=== PATIENT | female | born 1975 | race Caucasian/White ===

== ENCOUNTER 2016-05-17 18:55 | Emergency (ER) | payer BC, OTHER ==
[~2016-05-17] VITALS: Ht 170.2 cm; Wt 78.5 kg
[2016-05-17] MEDS ORDERED: MELA10CA2 PO (19:20)
[2016-05-17] MEDS ORDERED: LACTATED RINGERS 1,000 ML IV ONE ×2 (19:35→20:21)
[2016-05-17 19:42] LABS: BASOPHILS % (AUTO) 0 % (0-10); EOSINOPHILS # (AUTO) 0.2 10^3/uL (0.0-0.3); EOSINOPHILS % (AUTO) 2 % (0-10); LYMPHOCYTES # (AUTO) 1.4 X 10^3 (1.0-4.0); LYMPHOCYTES % (AUTO) 12 % (12-44); MEAN CORPUSCULAR HEMOGLOBIN 32 PG (25-34); MEAN CORPUSCULAR HGB CONC 34 G/DL (32-36); MEAN CORPUSCULAR VOLUME 92 FL (80-99); MONOCYTES # (AUTO) 1.1 X 10^3 (0.0-1.0); MONOCYTES % (AUTO) 9 % (0-12); NEUTROPHILS % (AUTO) 77 % (42-75); PLATELET COUNT 375 10^3/uL (130-400); RED BLOOD COUNT 4.63 10^6/uL (4.35-5.85); RED CELL DISTRIBUTION WIDTH 12.9 % (10.0-14.5); WHITE BLOOD COUNT 11.7 10^3/uL (4.3-11.0)
[2016-05-17] MEDS ORDERED: ONDANSETRON 4 MG/2 ML (SDV) Z0FRAN IVP ONE (19:45)
[2016-05-17 19:56] LABS: BILIRUBIN,URINE NEGATIVE (NEGATIVE); KETONES,URINE NEGATIVE (NEGATIVE); LEUKOCYTE ESTERASE ,URINE 2+ (NEGATIVE); NITRITE,URINE NEGATIVE (NEGATIVE); PH,URINE 5 (5-9); PROTEIN,URINE NEGATIVE (NEGATIVE); UROBILINOGEN,URINE NORMAL (NORMAL)
[2016-05-17 20:04] LABS: ALANINE AMINOTRANSFERASE 18 U/L (0-55); ALBUMIN 4.2 G/DL (3.2-4.5); AMYLASE 55 U/L (25-125); ANION GAP 8 MMOL/L (5-14); ASPARTATE AMINO TRANSFERASE 18 U/L (5-34); BILIRUBIN,TOTAL 0.6 MG/DL (0.1-1.0); BLOOD UREA NITROGEN 10 MG/DL (7-18); BUN/CREATININE RATIO 12; CALCIUM 8.9 MG/DL (8.5-10.1); CARBON DIOXIDE 21 MMOL/L (21-32); CHLORIDE 108 MMOL/L (98-107); CREATININE SERUM 0.86 MG/DL (0.60-1.30); GFR ESTIMATED > 60; GLUCOSE 103 MG/DL (70-105); LIPASE 27 U/L (8-78); POTASSIUM 3.6 MMOL/L (3.6-5.0); SODIUM 137 MMOL/L (135-145)
[2016-05-17] MEDS ORDERED: LEVOFLOXACIN 500 MG TAB (LEVAQUIN) PO STA (20:21)
[2016-05-17] MEDS ORDERED: KETOROLAC 30 MG/ML VIAL IVP ONE (20:30)
[2016-05-17] MEDS ORDERED: LEVO500T2 PO (20:31)
[2016-05-17] MEDS ORDERED: HYOS0.1283 SL (20:31)
[2016-05-17] MEDS ORDERED: ONDA4TAB8 PO (20:31)
--- NOTE | 2016-05-17 20:32 | ED GI ---
General Chief Complaint: Abdominal/GI Problems Stated Complaint: FEVER,NAUSEA Nursing Triage Note: pt reports vomiting and diahrrea since 0500 today. Sepsis Screen: No Definite Risk Source of Information: Patient History of Present Illness Time Seen By Provider: 19:30 Initial Comments C/O NAUSEA/VOMITING/DIARRHEA AND LOWER ABDOMINAL PAIN SINCE 0500 THIS AM VOMITED X 10-15 TODAY, LAST EPISODE AT 1430. C/O "SEVERE" DIARRHEA--20 TO 30 EPISODES. NO BLACK/BLOODY/TARRY STOOLS. LAST EPISODE 30 MINUTES PRIOR TO ARRIVAL. HAS MILD LOWER ABDOMINAL CRAMPING NO FEVER DECREASED URINE OUTPUT, BUT LAST VOID WAS 30 MINUTES PRIOR TO ARRIVAL NO SICK CONTACTS OR SUSPICIOUS FOODS. PCP: NONE Allergies and Home Medications Allergies Coded Allergies: No Known Drug Allergies (Unverified , 05/17/16) Home Medications Hyoscyamine Sulfate 0.125 Mg Tab.subl #10 1-2 TAB SL Q4H Prescribed by: SINDY NAVAS on 05/17/162030 Levofloxacin 500 Mg Tablet #10 500 MG PO DAILY Prescribed by: SINDY NAVAS on 05/17/162030 Melatonin 10 Mg Capsule 10 MG PO HS (Reported) Ondansetron 4 Mg Tab.rapdis #10 4 MG PO Q4H Prescribed by: SINDY NAVAS on 05/17/162030 Review of Systems Constitutional: no symptoms reported Respiratory: No Symptoms Reported Cardiovascular: No Symptoms Reported Gastrointestinal: See HPI Genitourinary: See HPI Musculoskeletal: no symptoms reported Skin: no symptoms reported Psychiatric/Neurological: No Symptoms Reported Endocrine: No Symptoms Reported Hematologic/Lymphatic: No Symptoms Reported Past [facility] Hx Patient Social History Alcohol Use: Denies Use Recreational Drug Use: No Smoking Status: Current Everyday Smoker Type Used: Cigarettes Recent Foreign Travel: No Contact w/Someone Who Travel: No Recent Infectious Disease Expo: No Recent Hopitalizations: No Physical Abuse Screen: No Sexual Abuse: No Seasonal Allergies Seasonal Allergies: No Surgeries HX Surgeries: Yes (SPLENECTOMY; OVARIAN CYST REMOVAL) Surgeries: Gallbladder, Tonsillectomy Respiratory Hx Respiratory Disorders: No Cardiovascular Hx Cardiac Disorders: No Neurological Hx Neurological Disorders: No Reproductive System : No Hx Reproductive Disorders: Yes Female Reproductive Disorders: Ovarian Cyst ACCOUNT RECEIVABLE ASSOCIATE History: IUD Genitourinary Hx Genitourinary Disorders: Yes (acute renal failure ?) Gastrointestinal Hx Gastrointestinal Disorders: Yes Gastrointestinal Disorders: Colitis, Irritable Bowel Musculoskeletal Hx Musculoskeletal Disorders: No Endocrine Hx Endocrine Disorders: No HEENT HX ENT Disorders: No Cancer Hx Cancer: No Psychosocial Hx Psychiatric Problems: No Integumentary HX Skin/Integumentary Disorder: No Blood Transfusions Hx Blood Disorders: No Physical Exam Vital Signs VS - Last 72 Hours, by Label 05/17/16 05/17/16 19:12 21:00 Temp 98.9 Pulse 71 64 Resp 18 18 B/P 113/76 Pulse Ox 100 98 Capillary Refill : Less Than 3 Seconds General Appearance: WD/WN no apparent distress other (TALKS NON-STOP AT GREAT LENGTH. DOES NOT APPEAR ILL OR TO BE IN ANY DISCOMFORT. WALKS UPRIGHT AND MOVES WITHOUT DIFFICULTY. ) HEENT: PERRL/EOMINo scleral icterus (R), No scleral icterus (L), other (ORAL MUCOSA MOIST) Neck: normal inspection Respiratory: normal breath sounds no respiratory distress no accessory muscle use Cardiovascular: regular rate, rhythm no murmur Gastrointestinal: normal bowel sounds soft no organomegaly no pulsatile massNo distended, No guarding, No rebound, tenderness (VERY MILD LOWER ABDOMINAL TENDERNESS)No hernia, No mass Extremities: normal inspection normal capillary refill Back: no CVA tenderness Neurologic/Psychiatric: washer and crusher tender II-XII nml as tested no motor/sensory deficits alert normal mood/affect oriented x 3 Skin: normal color warm/dry Progress/Results/Core Measures Results/Orders Lab Results Laboratory Tests Test 05/17/16 19:24 05/17/16 19:47 Range/Units Alanine Aminotransferase (ALT/SGPT) 18 0-55 U/L Albumin 4.2 3.2-4.5 G/DL Alkaline Phosphatase 53 40-136 U/L Amylase Level 55 25-125 U/L Anion Gap 8 5-14 MMOL/L Aspartate Amino Transf (AST/SGOT) 18 5-34 U/L BUN/Creatinine Ratio 12 Basophils # (Auto) 0.0 0.0-0.1 10^3/uL Basophils (%) (Auto) 0 0-10 % Blood Urea Nitrogen 10 7-18 MG/DL Calcium Level 8.9 8.5-10.1 MG/DL Carbon Dioxide Level 21 21-32 MMOL/L Chloride Level 108 H 98-107 MMOL/L Creatinine 0.86 0.60-1.30 MG/DL Eosinophils # (Auto) 0.2 0.0-0.3 10^3/uL Eosinophils (%) (Auto) 2 0-10 % Estimat Glomerular Filtration Rate > 60 Glucose Level 103 70-105 MG/DL Hematocrit 43 35-52 % Hemoglobin 14.7 11.5-16.0 G/DL Lipase 27 8-78 U/L Lymphocytes # (Auto) 1.4 1.0-4.0 X 10^3 Lymphocytes (%) (Auto) 12 12-44 % Mean Corpuscular Hemoglobin 32 25-34 PG Mean Corpuscular Hemoglobin Concent 34 32-36 G/DL Mean Corpuscular Volume 92 80-99 FL Mean Platelet Volume 10.0 7.4-10.4 FL Monocytes # (Auto) 1.1 H 0.0-1.0 X 10^3 Monocytes (%) (Auto) 9 0-12 % Neutrophils # (Auto) 9.0 H 1.8-7.8 X 10^3 Neutrophils (%) (Auto) 77 H 42-75 % Platelet Count 375 130-400 10^3/uL Potassium Level 3.6 3.6-5.0 MMOL/L Red Blood Count 4.63 4.35-5.85 10^6/uL Red Cell Distribution Width 12.9 10.0-14.5 % Serum Test, Qualitative NEGATIVE NEGATIVE Sodium Level 137 135-145 MMOL/L Total Bilirubin 0.6 0.1-1.0 MG/DL Total Protein 7.0 6.4-8.2 G/DL White Blood Count 11.7 H 4.3-11.0 10^3/uL Urine Bacteria LARGE H /HPF Urine Bilirubin NEGATIVE NEGATIVE Urine Casts NONE /LPF Urine Clarity SLIGHTLY CLOUDY Urine Color YELLOW Urine Crystals NONE /LPF Urine Culture Indicated YES Urine Glucose (UA) NEGATIVE NEGATIVE Urine Ketones NEGATIVE NEGATIVE Urine Leukocyte Esterase 2+ H NEGATIVE Urine Mucus MODERATE H /LPF Urine Nitrite NEGATIVE NEGATIVE Urine Protein NEGATIVE NEGATIVE Urine RBC NONE /HPF Urine RBC (Auto) NEGATIVE NEGATIVE Urine Specific [place] 1.020 1.016-1.022 Urine Squamous Epithelial Cells 10-25 H /HPF Urine Urobilinogen NORMAL NORMAL MG/DL Urine WBC 10-25 H /HPF Urine pH 5 5-9 My Orders Orders-YOSEF,SINDY K DO Saline Lock/Iv-Start (05/17/16 19:35) Amylase (05/17/16 19:35) Cbc With Automated Diff (05/17/16 19:35) Comprehensive Metabolic Panel (05/17/16 19:35) Hcg,Qualitative Serum (05/17/16 19:35) Lipase (05/17/16 19:35) Ua Culture If Indicated (05/17/16 19:35) Saline Lock/Iv-Start (05/17/16 19:35) Lactated Ringers (Lr 1000 Ml Iv Solution (05/17/16 19:35) Ondansetron Injection (Zofran Injectio (05/17/16 19:45) Urine Culture (05/17/16 19:47) Saline Lock/Iv-Start (05/17/16 20:21) Lactated Ringers (Lr 1000 Ml Iv Solution (05/17/16 20:21) Levofloxacin Tablet (Levaquin Tablet) (05/17/16 20:21) Ketorolac Injection (Toradol Injection) (05/17/16 20:30) Medications Given in ED Current Medications Medications Dose Ordered Sig/Leonard Route Start Time Stop Time Status Last Admin Dose Admin Lactated Ringer's 1,000 ml @ 0 mls/hr Q0M ONCE IV 05/17/16 19:35 05/17/16 19:37 DC 05/17/16 19:43 0 MLS/HR Ondansetron HCl 4 mg ONCE ONCE IVP 05/17/16 19:45 05/17/16 19:46 DC 05/17/16 19:43 4 MG Vital Signs/I&O Vital Sign - Last 12Hours 05/17/16 05/17/16 19:12 21:00 Temp 98.9 Pulse 71 64 Resp 18 18 B/P 113/76 Pulse Ox 100 98 Blood Pressure Mean: 88 Progress Note : Progress Note NO VOMITING OR DIARRHEA DURING ENTIRE ER STAY NAUSEA RESOLVED PT DECLINES PAIN MEDICATION Departure Impression Impression: Primary Impression: Gastroenteritis Additional Impressions: UTI (urinary tract infection) Volume depletion Disposition: 01 HOME, SELF-CARE Condition: Improved Departure-Patient Inst. Referrals: NO,LOCAL PHYSICIAN (PCP/Family) Primary Care Physician Patient Instructions: Dehydration, Adult (DC), Urinary Tract Infection, Adult ( DC), Viral Gastroenteritis Add. Discharge Instructions: CLEAR LIQUIDS--WATER, BROTH, JELLO, GATORADE WHEN NAUSEA AND VOMITING HAVE STOPPED, ADD BRATS DIET TO CLEAR LIQUIDS--BANANAS , RICE, APPLESAUCE, TOAST, SALTINES ACIDOPHILUS 2 PILLS 4 TIMES A DAY X 1 WEEK FOLLOW UP WITH DR OF CHOICE IN 2-3 DAYS IF NO BETTER, RETURN TO ER IF WORSE All discharge instructions reviewed with patient and/or family. Voiced understanding. Scripts Levofloxacin (Levaquin)500 Mg [id number] Mg PO DAILY INFECTION #10 TAB Prov:SINDY NAVAS DO 05/17/16 Hyoscyamine Sulfate (Levsin-Sl)0.125 Mg Tab.subl1-2 Tab SL Q4H Abdominal Pain # 10 TAB Prov:SINDY NAVAS DO 05/17/16 Ondansetron (Zofran Odt)4 Mg Tab.rapdis4 Mg PO Q4H Nausea/Vomiting #10 TAB Prov:SINDY NAVAS DO 05/17/16 Work/School Note: Local Medical Staff Listing, Work Release Form Date Seen in the Emergency Department: May 17, 2016 Return to Work: May 19, 2016 SINDY NAVAS DO May 17, 2016 20:31
[2016-05-17 21:00] VITALS: BP 125/67
== END 2016-05-17 21:01 | disposition home or self-care (01) ==
LOC: ER 18:58
DX: K52.9 Noninfective gastroenteritis and colitis, unspecified (principal); N39.0 Urinary tract infection, site not specified; E86.9 Volume depletion, unspecified; F17.210 Nicotine dependence, cigarettes, uncomplicated; Z79.899 Other long term (current) drug therapy
CPT/HCPCS: 36415; 80053; 81000; 82150; 83690; 84703; 85025; 87088; 96361; 96374